=== PATIENT | female | born 1955 | race African-American/Black ===

== ENCOUNTER 2018-08-22 14:55 | Observation (INO) ==
[2018-08-22] MEDS ORDERED: ONDANSETRON 4 MG/2 ML VIAL IV STA (15:45)
[2018-08-22] MEDS ORDERED: SODIUM CHLORIDE 0.9% 1,000 ML IV STA (15:45)
[2018-08-22] MEDS ORDERED: MORPHINE 4 MG/1 ML VIAL IV STA (15:45)
[2018-08-22] MEDS ORDERED: CYCLOBENZAPRINE 10 MG TABLET PO STA (15:47)
[2018-08-22 16:04] LABS: Basophils % 0.1 % (0.0-0.8); Hematocrit 37.3 VOL% (35.7-47.0); Hemoglobin 11.7 GM/DL (12.0-16.0); Immature Granulocytes % 0.5 %; Immature Granulocytes Absolute 0.05 #; Lymphocytes # 0.6 10*3/uL (1.4-4.0); Lymphocytes % 6.6 % (21.3-54.2); Mean Corpuscular HGB Conc 31.4 GM/DL (32-36); Mean Corpuscular Hemoglobin 31 PG (27-34); Mean Corpuscular Volume 99.7 FL (87-102); Mean Platelet Volume 9.4 FL (9.6-12.0); Monocytes # 0.2 10*3/uL (0.11-0.8); Monocytes % 1.7 % (1.7-12.7); Neutrophils # 8.4 10*3/uL (1.4-7.4); Neutrophils % 91.1 % (38.7-73.9); Platelet Count 382 T/CUMM (130-400); Red Blood Count 3.74 MC/CUMM (3.8-5.5); White Blood Count 9.2 T/CUMM (4-12)
[2018-08-22 16:24] LABS: Alanine Aminotransferase 26 U/L (13-56); Albumin 3.2 G/DL (3.4-5.0); Alkaline Phosphatase 122 U/L (45-117); Amylase 63 U/L (25-115); Aspartate Amino Transferase 20 U/L (0-37); Bilirubin,Total < 0.39 MG/DL (0.2-1.0); Blood Urea Nitrogen 20 MG/DL (7-18); Calcium 9.7 MG/DL (8.5-10.1); Glucose 197 MG/DL (74-106); Osmolality,Calculated 280.8 MOS/KG (273-304); Potassium 4.5 MMOL/L (3.5-5.1); Sodium 137 MMOL/L (136-145)
[2018-08-22 16:31] LABS: Free T4 (Free Thyroxine) 1.17 NG/DL (0.76-1.46); Thyroid Stimulating Hormone 1.4 uIU/ml (0.358-3.74)
[2018-08-22] MEDS ORDERED: MAGNESIUM SULF RIDER 2 GM in PREMIX 1 EACH IV STA (16:34)
[2018-08-22] MEDS ORDERED: hydrALAZINE 20 MG/1 ML VIAL IV STA (17:37)
[2018-08-22 17:55] LABS: Lymphocytes 5 % (20-55); Segmented Neutrophils 93 % (50-85); Total Cells Counted 100
[2018-08-22 17:56] LABS: Macrocytosis 1+; Platelet Estimate Adequate
[2018-08-22 18:47] LABS: Apearance,Urine Slightly Hazy (Clear); Bacteria,Urine Occasional /HPF (Few); Bilirubin,Urine Negative (Negative); Blood, Urine Negative (Negative); Calcium Oxalate Crystals,Urine Occasional /HPF (Few); Glucose,Urine (UA) 50 mg/dL (Negative); Ketones,Urine 5 mg/dL (Negative); Mucus,Urine Few /LPF (Occasional); Nitrite,Urine Negative (Negative); Protein,Urine 100 MG/DL; RBC,Urine 2 /HPF (0-4); Squamous Epithelial Cell,Urine Occasional /HPF (0-10); Urine Color Amber (Yellow); WBC,Urine 1 /HPF (0-6)
[2018-08-22] MEDS ORDERED: hydrALAZINE 20 MG/1 ML VIAL ONE (18:47)
[2018-08-22] MEDS ORDERED: DIAZEPAM 10 MG/2 ML SYRINGE IV STA (19:06)
[2018-08-22] MEDS ORDERED: LORazepam 2 MG/1 ML VIAL IV STA (19:15)
[2018-08-22] MEDS ORDERED: LORazepam 2 MG/1 ML VIAL ONE (19:17)
[2018-08-22] MEDS ORDERED: ACETAMINOPHEN 325 MG TABLET PO PRN (22:04)
[2018-08-22] MEDS ORDERED: traZODone 50 MG TABLET PO PRN (22:04)
[2018-08-22] MEDS ORDERED: MAGNESIUM SULF RIDER 4 GM in PREMIX 1 EACH IV PRN (22:04)
[2018-08-22] MEDS ORDERED: MAGNESIUM SULF RIDER 2 GM in PREMIX 1 EACH IV PRN (22:04)
[2018-08-22] MEDS ORDERED: ONDANSETRON 4 MG/2 ML VIAL IV PRN (22:04)
[2018-08-22] MEDS ORDERED: diphenhydrAMINE CAP 25 MG CAPSULE PO PRN (22:04)
[2018-08-22] MEDS ORDERED: MORPHINE 4 MG/1 ML VIAL IV PRN (22:04)
[2018-08-22] MEDS ORDERED: BISACODYL 5 MG TABLET PO PRN (22:04)
[2018-08-22] MEDS ORDERED: NICOTINE 21 MG/24 HR PATCH TRANSDERM PRN (22:04)
[2018-08-22 22:23] LABS: Risk Ratio 1.98; VLDL CHOLESTEROL 27.8 MG/DL
[2018-08-22] MEDS ORDERED: SODIUM CHLORIDE 0.9% 1,000 ML IV SCH (22:30)
[2018-08-22] MEDS ORDERED: LORazepam 2 MG/1 ML VIAL IV PRN (23:19)
[2018-08-22] MEDS: metroNIDAZOLE INJ 500 MG in PREMIX 1 EACH IV SCH (23:57)
[2018-08-23] MEDS: CIPROFLOXACIN INJ 400 MG in PREMIX 1 EACH IV SCH ×2 (01:35→12:59)
[2018-08-23 04:40] LABS: Basophils % 0.3 % (0.0-0.8); Eosinophils % 0.3 % (0.00-10.9); Hematocrit 31.5 VOL% (35.7-47.0); Hemoglobin 10.1 GM/DL (12.0-16.0); Immature Granulocytes % 0.7 %; Immature Granulocytes Absolute 0.05 #; Lymphocytes # 1.2 10*3/uL (1.4-4.0); Lymphocytes % 16.2 % (21.3-54.2); Mean Corpuscular HGB Conc 32.1 GM/DL (32-36); Mean Corpuscular Hemoglobin 31 PG (27-34); Mean Corpuscular Volume 97.5 FL (87-102); Mean Platelet Volume 9.4 FL (9.6-12.0); Monocytes # 0.8 10*3/uL (0.11-0.8); Monocytes % 11.4 % (1.7-12.7); Neutrophils # 5.1 10*3/uL (1.4-7.4); Neutrophils % 71.1 % (38.7-73.9); Platelet Count 325 T/CUMM (130-400); Red Blood Count 3.23 MC/CUMM (3.8-5.5); White Blood Count 7.1 T/CUMM (4-12)
[2018-08-23 04:58] LABS: Osmolality,Calculated 277.5 MOS/KG (273-304); Potassium 3.8 MMOL/L (3.5-5.1)
[2018-08-23] MEDS: PANTOPRAZOLE 40 MG TABLET PO SCH (09:40)
[2018-08-23] MEDS: MAGNESIUM OXIDE 400 MG TABLET PO SCH ×2 (12:14→22:02)
[2018-08-23] MEDS: metroNIDAZOLE INJ 500 MG in PREMIX 1 EACH IV SCH ×2 (12:14→23:45)
[2018-08-23] MEDS: NICOTINE 21 MG/24 HR PATCH TRANSDERM SCH (12:17)
[2018-08-23 12:53] LABS: HIV Antigen/Antibody Result Nonreactive (Nonreactive)
[2018-08-23] MEDS: CYPROHEPTADINE 4 MG TABLET PO SCH ×2 (14:24→22:02)
[2018-08-23] MEDS: BISACODYL 5 MG TABLET PO SCH ×2 (14:25→22:02)
[2018-08-23] MEDS ORDERED: POLYETHYLENE GLYCOL POWDER 255 GM BOTTLE PO ONE (18:00)
[2018-08-23] MEDS ORDERED: MAGNESIUM CITRATE 300 ML BOTTLE PO ONE (21:00)
[2018-08-23] MEDS ORDERED: MIRTAZAPINE 15 MG TABLET PO SCH (21:00)
[2018-08-24] MEDS: CIPROFLOXACIN INJ 400 MG in PREMIX 1 EACH IV SCH (02:00)
[2018-08-24 05:46] LABS: Basophils % 0.3 % (0.0-0.8); Eosinophils % 0.3 % (0.00-10.9); Hematocrit 32.1 VOL% (35.7-47.0); Immature Granulocytes % 0.5 %; Immature Granulocytes Absolute 0.07 #; Lymphocytes # 1.9 10*3/uL (1.4-4.0); Lymphocytes % 13.4 % (21.3-54.2); Mean Corpuscular HGB Conc 31.2 GM/DL (32-36); Mean Corpuscular Hemoglobin 32 PG (27-34); Mean Corpuscular Volume 101.9 FL (87-102); Mean Platelet Volume 9.7 FL (9.6-12.0); Monocytes # 0.8 10*3/uL (0.11-0.8); Monocytes % 5.2 % (1.7-12.7); Neutrophils # 11.5 10*3/uL (1.4-7.4); Neutrophils % 80.3 % (38.7-73.9); Platelet Count 322 T/CUMM (130-400); Red Blood Count 3.15 MC/CUMM (3.8-5.5); Red Cell Distribution Width 13.2 % (9.3-17.3); White Blood Count 14.4 T/CUMM (4-12)
[2018-08-24] MEDS: BISACODYL 5 MG TABLET PO SCH (05:48)
[2018-08-24 06:07] LABS: % Iron Saturation 8.5 % (18-50); Ferritin 166.5 ng/ml (8-252)
[2018-08-24 06:16] LABS: Folate 14.2 NG/ML (5.4-24.0); Vitamin B12 928 PG/ML (211-911)
[2018-08-24 07:01] LABS: Sedimentation Rate-Westergren 81 MM/HR (0-30)
[2018-08-24] MEDS ORDERED: PROPOFOL 200 MG/20 ML VIAL IV ONE (09:00)
[2018-08-24] MEDS ORDERED: LIDOCAINE 2% 5 ML VIAL ONE (09:00)
[2018-08-24] MEDS ORDERED: CHOLECALCIFEROL 1,000 UNIT TABLET PO SCH (09:00)
[2018-08-24] MEDS ORDERED: METOPROLOL TARTRATE 5 MG/5 ML VIAL IV ONE (09:00)
[2018-08-24 09:20] LABS: Immuno Free Light Chain Kappa 4.24 MG/DL (0.33-1.94); Immuno Free Light Chain Lambda 3.35 MG/DL (0.57-2.63); Immuno Free Light Chain Ratio 1.27 MG/DL (0.26-1.65)
[2018-08-24] MEDS: MAGNESIUM OXIDE 400 MG TABLET PO SCH (09:39)
[2018-08-24] MEDS: PANTOPRAZOLE 40 MG TABLET PO SCH (09:39)
[2018-08-24] MEDS: CYPROHEPTADINE 4 MG TABLET PO SCH (09:39)
[2018-08-24] MEDS: NICOTINE 21 MG/24 HR PATCH TRANSDERM SCH (09:40)
[2018-08-24 12:10] VITALS: BP 149/106
[2018-08-27 23:01] LABS: IgA Serum (MAYO) 188 mg/dL (61 - 356)
[2018-08-29 11:43] LABS: Tissue Transglutaminase IgA Ab < 1.2 U/mL
== END 2018-08-24 13:54 | disposition home or self-care (01) ==
LOC: N.EDINP 14:55 → N.ED 14:55 → N.EDINP 23:05 → N.2E 23:14
PROVIDERS: ADMIT Hospitalist; ATTEND Hospitalist

== ENCOUNTER 2019-06-11 21:14 | Observation (INO) ==
[2019-06-11] MEDS ORDERED: ORPHENADRINE 60 MG/2 ML VIAL IV STA (21:32)
[2019-06-11] MEDS ORDERED: methylPREDNISolone SOD SUC 125 MG/2 ML VIAL IV STA (21:32)
[2019-06-11] MEDS ORDERED: KETOROLAC 30 MG/1 ML VIAL IV STA (21:32)
[2019-06-11] MEDS ORDERED: hydrALAZINE 20 MG/1 ML VIAL IV STA (21:32)
[2019-06-11 22:01] LABS: Basophils % 0.3 % (0.0-0.8); Eosinophils % 0.3 % (0.00-10.9); Hematocrit 36.9 VOL% (35.7-47.0); Hemoglobin 12.1 GM/DL (12.0-16.0); Immature Granulocytes % 0.5 %; Immature Granulocytes Absolute 0.04 #; Lymphocytes % 22.9 % (21.3-54.2); Mean Corpuscular HGB Conc 32.8 GM/DL (32-36); Mean Corpuscular Volume 99.5 FL (87-102); Monocytes % 5.5 % (1.7-12.7); Neutrophils % 70.5 % (38.7-73.9); Platelet Count 337 T/CUMM (130-400); Red Blood Count 3.71 MC/CUMM (3.8-5.5); Red Cell Distribution Width 12.7 % (9.3-17.3); White Blood Count 8.8 T/CUMM (4-12)
[2019-06-11] MEDS ORDERED: ONDANSETRON 4 MG/2 ML VIAL IV STA (22:08)
[2019-06-11] MEDS ORDERED: fentaNYL 100 MCG/2 ML VIAL IV STA (22:08)
[2019-06-11 22:51] LABS: Alanine Aminotransferase 26 U/L (13-56); Albumin 3.4 G/DL (3.4-5.0); Alkaline Phosphatase 97 U/L (45-117); Aspartate Amino Transferase 24 U/L (0-37); Bilirubin,Total < 0.39 MG/DL (0.2-1.0); Blood Urea Nitrogen 15 MG/DL (7-18); Calcium 9.8 MG/DL (8.5-10.1); Estimated Glom Filtration Rate 39 ML/MIN; Glucose 152 MG/DL (74-106); Total Protein 7.4 G/DL (6.4-8.3); Troponin I < 0.015 NG/ML (0.00-0.045)
[2019-06-11 23:06] LABS: Sedimentation Rate-Westergren 71 MM/HR (0-30)
[2019-06-11 23:16] LABS: Apearance,Urine CLEAR (Clear); Bilirubin,Urine Small mg/dL (Negative); Blood, Urine Negative (Negative); Glucose,Urine (UA) Negative (Negative); Hyaline Casts,Urine 1 /LPF (0-3); Ketones,Urine Negative (Negative); Mucus,Urine Occasional /LPF (Occasional); Nitrite,Urine Negative (Negative); Protein,Urine 100 MG/DL; RBC,Urine 2 /HPF (0-4); Squamous Epithelial Cell,Urine Occasional /HPF (0-10); Urine Color Yellow (Yellow); Urine Specific Gravity 1.025 (1.001-1.035); WBC,Urine 1 /HPF (0-6)
[2019-06-11 23:26] LABS: Barbiturates Screen,Urine Negative (Negative); Benzodiazepines Screen,Urine Negative (Negative); Cannabinoid Screen,Urine Positive (Negative); Opiate Screen,Urine Positive (Negative); Phencyclidine Screen,Urine Negative (Negative)
[2019-06-12] MEDS ORDERED: ONDANSETRON 4 MG/2 ML VIAL IV PRN (01:26)
[2019-06-12] MEDS ORDERED: SODIUM CHLORIDE 0.9% 1,000 ML IV SCH (01:30)
[2019-06-12] MEDS ORDERED: hydrALAZINE 20 MG/1 ML VIAL IV PRN (01:33)
[2019-06-12] MEDS: HYDROmorphone 2 MG/1 ML VIAL IV PRN ×2 (02:42→07:25)
[2019-06-12 05:00] LABS: Osmolality,Calculated 273.1 MOS/KG (273-304)
[2019-06-12 07:58] VITALS: BP 166/63
[2019-06-12] MEDS ORDERED: PANTOPRAZOLE 40 MG TABLET PO SCH (09:00)
[2019-06-12] MEDS ORDERED: CHOLECALCIFEROL 1,000 UNIT TABLET PO SCH (09:00)
[2019-06-12] MEDS ORDERED: ENOXAPARIN 40 MG/0.4 ML SYRINGE SUBCUT SCH (09:00)
== END 2019-06-12 12:16 | disposition home or self-care (01) ==
LOC: N.EDINP 21:14 → N.ED 21:14 → N.2W 06-12 03:00
PROVIDERS: ADMIT Hospitalist; ATTEND Hospitalist

== ENCOUNTER 2019-06-29 17:19 | Inpatient (IN) ==
[2019-06-29] MEDS ORDERED: MORPHINE 4 MG/1 ML VIAL IM STA (20:57)
[2019-06-29 21:29] LABS: Basophils % 0.2 % (0.0-0.8); Eosinophils % 0.2 % (0.00-10.9); Hematocrit 36.4 VOL% (35.7-47.0); Hemoglobin 12.2 GM/DL (12.0-16.0); Immature Granulocytes % 0.5 %; Immature Granulocytes Absolute 0.04 #; Lymphocytes # 1.1 10*3/uL (1.4-4.0); Lymphocytes % 13.2 % (21.3-54.2); Mean Corpuscular HGB Conc 33.5 GM/DL (32-36); Mean Corpuscular Volume 97.1 FL (87-102); Mean Platelet Volume 9.5 FL (9.6-12.0); Monocytes % 2.4 % (1.7-12.7); Neutrophils % 83.5 % (38.7-73.9); Platelet Count 287 T/CUMM (130-400); Red Blood Count 3.75 MC/CUMM (3.8-5.5); Red Cell Distribution Width 12.6 % (9.3-17.3); White Blood Count 8.2 T/CUMM (4-12)
[2019-06-29] MEDS ORDERED: MORPHINE 4 MG/1 ML VIAL IV STA ×2 (21:35→23:29)
[2019-06-29] MEDS: MORPHINE 4 MG/1 ML VIAL IV STA (21:35)
[2019-06-29 21:47] LABS: Albumin 3.3 G/DL (3.4-5.0); Bilirubin,Total 0.4 MG/DL (0.2-1.0); Calcium 10.1 MG/DL (8.5-10.1); Osmolality,Calculated 275.1 MOS/KG (273-304); Total Protein 7.6 G/DL (6.4-8.3)
[2019-06-29 23:04] LABS: Apearance,Urine CLEAR (Clear); Bilirubin,Urine Negative (Negative); Blood, Urine Negative (Negative); Glucose,Urine (UA) Negative (Negative); Hyaline Casts,Urine 5 /LPF (0-3); Ketones,Urine 20 mg/dL (Negative); Mucus,Urine Occasional /LPF (Occasional); Nitrite,Urine Negative (Negative); Protein,Urine 100 MG/DL; RBC,Urine 6 /HPF (0-4); Squamous Epithelial Cell,Urine Occasional /HPF (0-10); Urine Color Yellow (Yellow); WBC,Urine 1 /HPF (0-6)
[2019-06-29] MEDS ORDERED: KETOROLAC 30 MG/1 ML VIAL IM STA (23:25)
[2019-06-29 23:48] LABS: INR 0.9; PT Patient Result 9.8 SECS (9.6-12.2)
[2019-06-30] MEDS ORDERED: ONDANSETRON 4 MG/2 ML VIAL IV PRN ×2 (02:00→14:36)
[2019-06-30] MEDS: DEXTROSE 5% NACL 0.45% 1,000 ML IV SCH ×3 (04:03→19:41)
[2019-06-30 06:30] LABS: Basophils % 0.3 % (0.0-0.8); Hematocrit 32.8 VOL% (35.7-47.0); Hemoglobin 10.8 GM/DL (12.0-16.0); Immature Granulocytes % 0.4 %; Immature Granulocytes Absolute 0.03 #; Lymphocytes # 1.3 10*3/uL (1.4-4.0); Lymphocytes % 18.5 % (21.3-54.2); Mean Corpuscular HGB Conc 32.9 GM/DL (32-36); Mean Corpuscular Volume 97.9 FL (87-102); Monocytes % 6.2 % (1.7-12.7); Neutrophils % 74.6 % (38.7-73.9); Platelet Count 257 T/CUMM (130-400); Red Blood Count 3.35 MC/CUMM (3.8-5.5); Red Cell Distribution Width 12.8 % (9.3-17.3); White Blood Count 6.8 T/CUMM (4-12)
[2019-06-30 06:46] LABS: Calcium 9.2 MG/DL (8.5-10.1)
[2019-06-30] MEDS: PANTOPRAZOLE 40 MG TABLET PO SCH (08:29)
[2019-06-30] MEDS: ceFAZolin 1,000 MG in SYRINGE 1 EACH IV ONE (09:04)
[2019-06-30] MEDS ORDERED: BUPIVACAINE MPF 0.25% 30 ML VIAL ONE (09:24)
[2019-06-30] MEDS ORDERED: LIDOCAINE 1%/EPI INJ 20 ML VIAL ONE (09:24)
[2019-06-30] MEDS ORDERED: TISSUE ADHESIVE 1 EACH APPLICATOR TOP ONE (09:24)
[2019-06-30] MEDS ORDERED: SUGAMMADEX 200 MG/2 ML VIAL IV ONE (14:00)
[2019-06-30] MEDS: HYDROmorphone 2 MG/1 ML VIAL IV PRN ×8 (14:36→22:21)
[2019-06-30] MEDS ORDERED: ONDANSETRON 4 MG/2 ML VIAL ONE (14:37)
[2019-06-30] MEDS ORDERED: HYDROmorphone 2 MG/1 ML VIAL ONE (14:37)
[2019-06-30] MEDS ORDERED: hydrALAZINE 20 MG/1 ML VIAL ONE (14:40)
[2019-06-30] MEDS ORDERED: ESMOLOL 100 MG/10 ML VIAL IV ONE (14:40)
[2019-06-30] MEDS ORDERED: SEVOFLURANE 1 UNIT/15 MINUTE INH ONE (14:40)
[2019-06-30] MEDS ORDERED: propofoL 200 MG/20 ML VIAL IV ONE (14:40)
[2019-06-30] MEDS ORDERED: LIDOCAINE 2% 5 ML VIAL ONE (14:40)
[2019-06-30] MEDS ORDERED: ALBUTEROL INHALER 8 GM INH ONE (14:40)
[2019-06-30] MEDS ORDERED: fentaNYL 250 MCG/5 ML VIAL ONE (14:40)
[2019-06-30] MEDS ORDERED: ROCURONIUM 100 MG/10 ML VIAL IV ONE (14:41)
[2019-06-30] MEDS ORDERED: PHENYLEPHRINE 1 MG/10 ML SYRINGE IV ONE (14:41)
[2019-06-30] MEDS ORDERED: LACTATED RINGERS 2,000 ML IV ONE (14:41)
[2019-06-30 16:23] LABS: ABG Base Excess 4.2 MMOL/L (-2.5-2.5); ABG HCO3 27.8 MMOL/L (20-26); ABG Oxygen Saturation 81.2 % (95-100); ABG PCO2 35.5 MM HG (35-48); ABG PH 7.495 (7.35-7.45); ABG PO2 45.7 MM HG (80-95); ABG TCO2 24.3 MMOL/L (23-27)
[2019-06-30 16:41] LABS: Calcium 9.3 MG/DL (8.5-10.1); Osmolality,Calculated 269.4 MOS/KG (273-304)
[2019-06-30] MEDS: SODIUM CHLORIDE 0.9% 1,000 ML IV SCH (18:25)
[2019-06-30] MEDS: ALBUTEROL/IPRATROPIUM 3 ML NEB RESP TX SCH (19:29)
[2019-06-30] MEDS: BUDESONIDE 0.5 MG/2 ML NEB RESP TX SCH (19:29)
[2019-06-30] MEDS: ENOXAPARIN 40 MG/0.4 ML SYRINGE SUBCUT SCH (19:48)
[2019-06-30] MEDS ORDERED: ENOXAPARIN 40 MG/0.4 ML SYRINGE SUBCUT SCH (20:00)
[2019-07-01] MEDS: HYDROmorphone 2 MG/1 ML VIAL IV PRN ×10 (00:25→23:11)
[2019-07-01] MEDS: ALBUTEROL/IPRATROPIUM 3 ML NEB RESP TX SCH ×7 (00:32→23:30)
[2019-07-01] MEDS: DEXTROSE 5% NACL 0.45% 1,000 ML IV SCH ×3 (03:25→20:05)
[2019-07-01] MEDS: SODIUM CHLORIDE 0.9% 1,000 ML IV SCH ×3 (05:33→16:43)
[2019-07-01 06:01] LABS: Basophils % 0.3 % (0.0-0.8); Hematocrit 30.7 VOL% (35.7-47.0); Immature Granulocytes % 0.3 %; Immature Granulocytes Absolute 0.02 #; Lymphocytes # 1.3 10*3/uL (1.4-4.0); Lymphocytes % 16.5 % (21.3-54.2); Mean Corpuscular HGB Conc 32.6 GM/DL (32-36); Mean Corpuscular Volume 99.4 FL (87-102); Mean Platelet Volume 10.1 FL (9.6-12.0); Monocytes % 7.9 % (1.7-12.7); Platelet Count 269 T/CUMM (130-400); Red Blood Count 3.09 MC/CUMM (3.8-5.5); Red Cell Distribution Width 13.1 % (9.3-17.3); White Blood Count 7.9 T/CUMM (4-12)
[2019-07-01 06:22] LABS: Calcium 8.2 MG/DL (8.5-10.1); Osmolality,Calculated 281.3 MOS/KG (273-304)
[2019-07-01 06:25] LABS: Albumin 2.5 G/DL (3.4-5.0); Bilirubin,Total 0.7 MG/DL (0.2-1.0); Calcium 8.5 MG/DL (8.5-10.1); Osmolality,Calculated 279.4 MOS/KG (273-304); Total Protein 5.9 G/DL (6.4-8.3)
[2019-07-01] MEDS: ENOXAPARIN 40 MG/0.4 ML SYRINGE SUBCUT SCH (06:38)
[2019-07-01] MEDS: METHOCARBAMOL INJ 500 MG in SODIUM CHLORIDE 0.9% 100 ML IV SCH ×2 (08:32→19:01)
[2019-07-01] MEDS: PANTOPRAZOLE 40 MG TABLET PO SCH (08:53)
[2019-07-01] MEDS: BUDESONIDE 0.5 MG/2 ML NEB RESP TX SCH ×2 (09:08→19:35)
[2019-07-01] MEDS ORDERED: MAGNESIUM SULF RIDER 1 GM in PREMIX 1 EACH IV PRN (09:27)
[2019-07-01] MEDS ORDERED: METOPROLOL TARTRATE 5 MG/5 ML VIAL IV ONE (15:14)
[2019-07-01] MEDS: ACETAMINOPHEN 325 MG TABLET PO PRN (15:24)
[2019-07-01 16:06] LABS: Apearance,Urine CLEAR (Clear); Bilirubin,Urine Negative (Negative); Blood, Urine Negative (Negative); Glucose,Urine (UA) Negative (Negative); Hyaline Casts,Urine 1 /LPF (0-3); Ketones,Urine Negative (Negative); Nitrite,Urine Negative (Negative); Protein,Urine Negative; RBC,Urine <1 /HPF (0-4); Urine Color Yellow (Yellow); Urine Specific Gravity 1.014 (1.001-1.035); Urine Urobilinogen < 2.0 EU/DL (0.2-1.0); WBC,Urine 1 /HPF (0-6)
[2019-07-01 19:32] LABS: Basophils % 0.1 % (0.0-0.8); Hematocrit 32.9 VOL% (35.7-47.0); Hemoglobin 10.5 GM/DL (12.0-16.0); Immature Granulocytes % 0.4 %; Immature Granulocytes Absolute 0.05 #; Lymphocytes # 0.8 10*3/uL (1.4-4.0); Lymphocytes % 6.1 % (21.3-54.2); Mean Corpuscular HGB Conc 31.9 GM/DL (32-36); Mean Corpuscular Volume 100.6 FL (87-102); Mean Platelet Volume 10.1 FL (9.6-12.0); Monocytes % 3.9 % (1.7-12.7); Neutrophils % 89.5 % (38.7-73.9); Platelet Count 276 T/CUMM (130-400); Red Blood Count 3.27 MC/CUMM (3.8-5.5); White Blood Count 13.7 T/CUMM (4-12)
[2019-07-01] MEDS: PIPERACILLIN/TAZOBACTAM 3,375 MG in SODIUM CHLORIDE 0.9% 100 ML IV SCH (20:05)
[2019-07-02] MEDS: SODIUM CHLORIDE 0.9% 1,000 ML IV SCH ×3 (00:39→14:10)
[2019-07-02] MEDS: METHOCARBAMOL INJ 500 MG in SODIUM CHLORIDE 0.9% 100 ML IV SCH ×4 (01:12→23:25)
[2019-07-02] MEDS: VANCOMYCIN INJ 500 MG in SODIUM CHLORIDE 0.9% 100 ML IV SCH ×2 (01:52→14:30)
[2019-07-02] MEDS: PIPERACILLIN/TAZOBACTAM 3,375 MG in SODIUM CHLORIDE 0.9% 100 ML IV SCH ×3 (02:54→18:07)
[2019-07-02] MEDS: DEXTROSE 5% NACL 0.45% 1,000 ML IV SCH ×2 (02:55→10:30)
[2019-07-02] MEDS: ALBUTEROL/IPRATROPIUM 3 ML NEB RESP TX SCH ×6 (03:35→23:32)
[2019-07-02] MEDS: HYDROmorphone 2 MG/1 ML VIAL IV PRN ×2 (04:18→22:21)
[2019-07-02 04:48] LABS: Basophils % 0.3 % (0.0-0.8); Hematocrit 28.2 VOL% (35.7-47.0); Hemoglobin 9.1 GM/DL (12.0-16.0); Immature Granulocytes % 0.4 %; Immature Granulocytes Absolute 0.05 #; Lymphocytes # 1.4 10*3/uL (1.4-4.0); Lymphocytes % 9.9 % (21.3-54.2); Mean Corpuscular HGB Conc 32.3 GM/DL (32-36); Mean Corpuscular Volume 100.4 FL (87-102); Monocytes % 4.7 % (1.7-12.7); Neutrophils % 84.7 % (38.7-73.9); Platelet Count 262 T/CUMM (130-400); Red Blood Count 2.81 MC/CUMM (3.8-5.5); Red Cell Distribution Width 12.8 % (9.3-17.3); White Blood Count 14.2 T/CUMM (4-12)
[2019-07-02 05:12] LABS: Osmolality,Calculated 275.7 MOS/KG (273-304)
[2019-07-02] MEDS ORDERED: MAGNESIUM SULF RIDER 4 GM in PREMIX 1 EACH IV PRN (05:36)
[2019-07-02] MEDS: MAGNESIUM SULF RIDER 2 GM in PREMIX 1 EACH IV PRN (05:57)
[2019-07-02] MEDS: BUDESONIDE 0.5 MG/2 ML NEB RESP TX SCH ×2 (07:43→19:45)
[2019-07-02] MEDS: ceFAZolin 1,000 MG in SYRINGE 1 EACH IV ONE (08:03)
[2019-07-02] MEDS: PANTOPRAZOLE 40 MG TABLET PO SCH (09:15)
[2019-07-02 11:13] LABS: Basophils # 0.1 10*3/uL (0.0-0.2); Basophils % 0.3 % (0.0-0.8); Hematocrit 33.4 VOL% (35.7-47.0); Hemoglobin 10.7 GM/DL (12.0-16.0); Immature Granulocytes % 0.5 %; Immature Granulocytes Absolute 0.08 #; Lymphocytes # 1.1 10*3/uL (1.4-4.0); Lymphocytes % 6.2 % (21.3-54.2); Mean Corpuscular Volume 101.5 FL (87-102); Mean Platelet Volume 9.5 FL (9.6-12.0); Monocytes % 3.8 % (1.7-12.7); Neutrophils % 89.2 % (38.7-73.9); Platelet Count 278 T/CUMM (130-400); Red Blood Count 3.29 MC/CUMM (3.8-5.5); Red Cell Distribution Width 13.1 % (9.3-17.3); White Blood Count 17.5 T/CUMM (4-12)
[2019-07-02 11:24] LABS: INR 0.9; Partial Thromboplastin Time 28.1 SECS (20.8-36.0)
[2019-07-03] MEDS: VANCOMYCIN INJ 500 MG in SODIUM CHLORIDE 0.9% 100 ML IV SCH ×2 (01:06→15:31)
[2019-07-03] MEDS: SODIUM CHLORIDE 0.9% 1,000 ML IV SCH ×3 (01:28→13:00)
[2019-07-03] MEDS: PIPERACILLIN/TAZOBACTAM 3,375 MG in SODIUM CHLORIDE 0.9% 100 ML IV SCH ×3 (03:30→18:00)
[2019-07-03] MEDS: ALBUTEROL/IPRATROPIUM 3 ML NEB RESP TX SCH ×6 (03:38→23:59)
[2019-07-03 05:42] LABS: Calcium 7.9 MG/DL (8.5-10.1); Osmolality,Calculated 270.8 MOS/KG (273-304)
[2019-07-03 05:46] LABS: Basophils % 0.2 % (0.0-0.8); Eosinophils # 0.1 10*3/uL (0.0-0.87); Eosinophils % 0.9 % (0.00-10.9); Immature Granulocytes % 0.9 %; Immature Granulocytes Absolute 0.11 #; Lymphocytes # 1.3 10*3/uL (1.4-4.0); Lymphocytes % 10.3 % (21.3-54.2); Mean Corpuscular HGB Conc 32.7 GM/DL (32-36); Mean Corpuscular Volume 100.4 FL (87-102); Monocytes % 7.2 % (1.7-12.7); Neutrophils % 80.5 % (38.7-73.9); Platelet Count 253 T/CUMM (130-400); Red Cell Distribution Width 13.2 % (9.3-17.3); White Blood Count 12.2 T/CUMM (4-12)
[2019-07-03 05:48] LABS: Hematocrit 25.7 VOL% (35.7-47.0); Hemoglobin 8.4 GM/DL (12.0-16.0); Red Blood Count 2.56 MC/CUMM (3.8-5.5)
[2019-07-03] MEDS: MAGNESIUM SULF RIDER 2 GM in PREMIX 1 EACH IV PRN (06:10)
[2019-07-03 06:18] LABS: Anisocytosis 1+; Macrocytosis 1+; Platelet Estimate Normal
[2019-07-03] MEDS: HYDROmorphone 2 MG/1 ML VIAL IV PRN (06:55)
[2019-07-03] MEDS: BUDESONIDE 0.5 MG/2 ML NEB RESP TX SCH ×2 (07:55→19:23)
[2019-07-03] MEDS: PANTOPRAZOLE 40 MG TABLET PO SCH (09:07)
[2019-07-03] MEDS: METHOCARBAMOL INJ 500 MG in SODIUM CHLORIDE 0.9% 100 ML IV SCH ×2 (09:07→17:21)
[2019-07-04] MEDS: METHOCARBAMOL INJ 500 MG in SODIUM CHLORIDE 0.9% 100 ML IV SCH ×4 (00:24→15:05)
[2019-07-04] MEDS: PIPERACILLIN/TAZOBACTAM 3,375 MG in SODIUM CHLORIDE 0.9% 100 ML IV SCH ×3 (02:40→17:07)
[2019-07-04] MEDS: VANCOMYCIN INJ 500 MG in SODIUM CHLORIDE 0.9% 100 ML IV SCH ×2 (02:43→14:01)
[2019-07-04] MEDS: ALBUTEROL/IPRATROPIUM 3 ML NEB RESP TX SCH ×6 (03:33→23:54)
[2019-07-04 05:18] LABS: Basophils % 0.4 % (0.0-0.8); Eosinophils # 0.3 10*3/uL (0.0-0.87); Eosinophils % 2.8 % (0.00-10.9); Hematocrit 24.5 VOL% (35.7-47.0); Hemoglobin 8.1 GM/DL (12.0-16.0); Lymphocytes # 1.3 10*3/uL (1.4-4.0); Lymphocytes % 12.5 % (21.3-54.2); Mean Corpuscular HGB Conc 33.1 GM/DL (32-36); Mean Corpuscular Volume 99.2 FL (87-102); Mean Platelet Volume 9.8 FL (9.6-12.0); Monocytes % 6.1 % (1.7-12.7); Neutrophils % 77.2 % (38.7-73.9); Platelet Count 290 T/CUMM (130-400); Red Blood Count 2.47 MC/CUMM (3.8-5.5); Red Cell Distribution Width 12.9 % (9.3-17.3); White Blood Count 10.1 T/CUMM (4-12)
[2019-07-04 05:30] LABS: Calcium 8.2 MG/DL (8.5-10.1); Osmolality,Calculated 281.1 MOS/KG (273-304)
[2019-07-04] MEDS: BUDESONIDE 0.5 MG/2 ML NEB RESP TX SCH ×2 (07:27→19:50)
[2019-07-04] MEDS: SODIUM CHLORIDE 0.9% 1,000 ML IV SCH ×2 (08:46→16:07)
[2019-07-04] MEDS: PANTOPRAZOLE 40 MG TABLET PO SCH (08:47)
[2019-07-04] MEDS: ACETYLCYSTEINE 20% 800 MG/4 ML VIAL RESP TX SCH (23:54)
[2019-07-05] MEDS: METHOCARBAMOL INJ 500 MG in SODIUM CHLORIDE 0.9% 100 ML IV SCH ×4 (00:37→23:24)
[2019-07-05] MEDS: VANCOMYCIN INJ 500 MG in SODIUM CHLORIDE 0.9% 100 ML IV SCH ×2 (01:52→13:13)
[2019-07-05] MEDS: ALBUTEROL/IPRATROPIUM 3 ML NEB RESP TX SCH ×6 (03:05→23:42)
[2019-07-05] MEDS: PIPERACILLIN/TAZOBACTAM 3,375 MG in SODIUM CHLORIDE 0.9% 100 ML IV SCH ×3 (03:38→17:49)
[2019-07-05 06:03] LABS: Basophils # 0.1 10*3/uL (0.0-0.2); Basophils % 0.5 % (0.0-0.8); Eosinophils # 0.3 10*3/uL (0.0-0.87); Eosinophils % 3.4 % (0.00-10.9); Hematocrit 25.1 VOL% (35.7-47.0); Hemoglobin 8.3 GM/DL (12.0-16.0); Immature Granulocytes % 1.5 %; Immature Granulocytes Absolute 0.14 #; Lymphocytes # 1.2 10*3/uL (1.4-4.0); Lymphocytes % 13.4 % (21.3-54.2); Mean Corpuscular HGB Conc 33.1 GM/DL (32-36); Mean Platelet Volume 9.6 FL (9.6-12.0); Monocytes % 7.9 % (1.7-12.7); Neutrophils % 73.3 % (38.7-73.9); Platelet Count 362 T/CUMM (130-400); Red Blood Count 2.56 MC/CUMM (3.8-5.5); Red Cell Distribution Width 13.1 % (9.3-17.3); White Blood Count 9.2 T/CUMM (4-12)
[2019-07-05 06:29] LABS: Calcium 8.3 MG/DL (8.5-10.1); Osmolality,Calculated 275.4 MOS/KG (273-304)
[2019-07-05] MEDS: BUDESONIDE 0.5 MG/2 ML NEB RESP TX SCH ×2 (07:56→20:19)
[2019-07-05] MEDS: ACETYLCYSTEINE 20% 800 MG/4 ML VIAL RESP TX SCH ×3 (07:56→21:51)
[2019-07-05] MEDS: PANTOPRAZOLE 40 MG TABLET PO SCH (09:52)
[2019-07-05] MEDS: SODIUM CHLORIDE 0.9% 1,000 ML IV SCH (16:01)
[2019-07-06] MEDS: PIPERACILLIN/TAZOBACTAM 3,375 MG in SODIUM CHLORIDE 0.9% 100 ML IV SCH ×3 (01:48→17:25)
[2019-07-06] MEDS: ALBUTEROL/IPRATROPIUM 3 ML NEB RESP TX SCH ×6 (03:44→23:55)
[2019-07-06 05:29] LABS: Basophils # 0.1 10*3/uL (0.0-0.2); Basophils % 0.9 % (0.0-0.8); Eosinophils # 0.3 10*3/uL (0.0-0.87); Eosinophils % 3.5 % (0.00-10.9); Hematocrit 24.8 VOL% (35.7-47.0); Hemoglobin 8.2 GM/DL (12.0-16.0); Immature Granulocytes % 2.1 %; Immature Granulocytes Absolute 0.19 #; Lymphocytes # 1.5 10*3/uL (1.4-4.0); Mean Corpuscular HGB Conc 33.1 GM/DL (32-36); Mean Corpuscular Volume 98.4 FL (87-102); Mean Platelet Volume 9.2 FL (9.6-12.0); Monocytes % 8.3 % (1.7-12.7); Neutrophils % 68.2 % (38.7-73.9); Platelet Count 392 T/CUMM (130-400); Red Blood Count 2.52 MC/CUMM (3.8-5.5); Red Cell Distribution Width 12.8 % (9.3-17.3); White Blood Count 8.9 T/CUMM (4-12)
[2019-07-06 05:40] LABS: Osmolality,Calculated 277.3 MOS/KG (273-304)
[2019-07-06] MEDS: BUDESONIDE 0.5 MG/2 ML NEB RESP TX SCH ×2 (07:26→19:48)
[2019-07-06] MEDS: METHOCARBAMOL INJ 500 MG in SODIUM CHLORIDE 0.9% 100 ML IV SCH ×3 (09:10→23:37)
[2019-07-06] MEDS: PANTOPRAZOLE 40 MG TABLET PO SCH (09:10)
[2019-07-06] MEDS: ACETYLCYSTEINE 20% 800 MG/4 ML VIAL RESP TX SCH ×3 (10:34→23:54)
[2019-07-06] MEDS: POTASSIUM CHLORIDE 20 MEQ TABLET PO PRN ×4 (11:02→18:06)
[2019-07-06] MEDS: SODIUM CHLORIDE 0.9% 1,000 ML IV SCH (20:43)
[2019-07-07] MEDS: PIPERACILLIN/TAZOBACTAM 3,375 MG in SODIUM CHLORIDE 0.9% 100 ML IV SCH ×3 (01:29→17:38)
[2019-07-07] MEDS: ALBUTEROL/IPRATROPIUM 3 ML NEB RESP TX SCH ×6 (03:08→23:53)
[2019-07-07] MEDS: SODIUM CHLORIDE 0.9% 1,000 ML IV SCH (05:00)
[2019-07-07] MEDS: ACETYLCYSTEINE 20% 800 MG/4 ML VIAL RESP TX SCH ×3 (08:01→23:53)
[2019-07-07] MEDS: BUDESONIDE 0.5 MG/2 ML NEB RESP TX SCH ×2 (08:01→20:40)
[2019-07-07] MEDS: METHOCARBAMOL INJ 500 MG in SODIUM CHLORIDE 0.9% 100 ML IV SCH ×3 (08:38→23:48)
[2019-07-07] MEDS: LISINOPRIL/HCTZ 10-12.5 MG TABLET PO SCH (08:38)
[2019-07-07] MEDS: PANTOPRAZOLE 40 MG TABLET PO SCH (08:38)
[2019-07-07] MEDS ORDERED: hydrALAZINE 20 MG/1 ML VIAL IV ONE (13:09)
[2019-07-07] MEDS: HYDROmorphone 2 MG/1 ML VIAL IV PRN (13:33)
[2019-07-07] MEDS: ACETAMINOPHEN 325 MG TABLET PO PRN (21:14)
[2019-07-08] MEDS: ALBUTEROL/IPRATROPIUM 3 ML NEB RESP TX SCH ×3 (03:37→10:51)
[2019-07-08] MEDS: SODIUM CHLORIDE 0.9% 1,000 ML IV SCH ×2 (04:08→08:54)
[2019-07-08] MEDS: PIPERACILLIN/TAZOBACTAM 3,375 MG in SODIUM CHLORIDE 0.9% 100 ML IV SCH ×2 (04:09→12:11)
[2019-07-08] MEDS: ACETYLCYSTEINE 20% 800 MG/4 ML VIAL RESP TX SCH (07:34)
[2019-07-08] MEDS: BUDESONIDE 0.5 MG/2 ML NEB RESP TX SCH (07:34)
[2019-07-08 08:31] LABS: Basophils # 0.1 10*3/uL (0.0-0.2); Basophils % 1.1 % (0.0-0.8); Eosinophils # 0.3 10*3/uL (0.0-0.87); Eosinophils % 4.2 % (0.00-10.9); Hematocrit 26.5 VOL% (35.7-47.0); Hemoglobin 8.6 GM/DL (12.0-16.0); Immature Granulocytes % 2.4 %; Immature Granulocytes Absolute 0.19 #; Lymphocytes # 1.5 10*3/uL (1.4-4.0); Lymphocytes % 18.6 % (21.3-54.2); Mean Corpuscular HGB Conc 32.5 GM/DL (32-36); Mean Corpuscular Volume 99.3 FL (87-102); Mean Platelet Volume 8.9 FL (9.6-12.0); Monocytes % 9.6 % (1.7-12.7); Neutrophils % 64.1 % (38.7-73.9); Platelet Count 488 T/CUMM (130-400); Red Blood Count 2.67 MC/CUMM (3.8-5.5); Red Cell Distribution Width 13.5 % (9.3-17.3); White Blood Count 7.8 T/CUMM (4-12)
[2019-07-08] MEDS: METHOCARBAMOL INJ 500 MG in SODIUM CHLORIDE 0.9% 100 ML IV SCH (09:29)
[2019-07-08] MEDS: LISINOPRIL/HCTZ 10-12.5 MG TABLET PO SCH (09:30)
[2019-07-08] MEDS: PANTOPRAZOLE 40 MG TABLET PO SCH (09:30)
[2019-07-08 13:31] VITALS: BP 141/94
== END 2019-07-08 13:18 | disposition home or self-care (01) | DRG 981 ==
LOC: N.EDINP 17:19 → N.ED 17:19 → N.5E 06-30 03:02 → N.ICU 06-30 17:03 → N.3E 07-03 13:00
PROVIDERS: ADMIT Student in an Organized Health Care Education/Training Program; ATTEND Student in an Organized Health Care Education/Training Program